=== PATIENT | male | born 1965 | race Caucasian/White ===

== ENCOUNTER 2018-06-25 11:06 | Outpatient (REF) | payer MEDICARE, SELFPAY ==
[2018-06-25 20:36] LABS: ALT 44 U/L (12-78); AST 58 U/L (15-37); Albumin 2.9 g/dL (3.4-5.0); Alkaline Phosphatase 186 U/L (46-116); Anion Gap 12.1 mmol/L (3-11); BUN 14 mg/dL (7-18); Bilirubin, Total 0.4 mg/dL (0.2-1.0); CO2 27.9 mmol/L (21.0-32.0); CREATININE 0.82 mg/dL (0.70-1.30); Calcium 9.9 mg/dL (8.5-10.1); Chloride 98 mmol/L (98-107); Cholesterol 148 mg/dL (50-200); Glucose 109 mg/dL (70-100); HDL Cholesterol 23 mg/dL (40-60); LDL CHOLESTEROL 85 mg/dL (<100); Magnesium 1.8 mg/dL (1.8-2.4); Potassium 5.3 mmol/L (3.5-5.1); Sodium 138 mmol/L (136-145); Total Protein 7.6 g/dL (6.4-8.2); Triglyceride 120 mg/dL (30-150)
== END 2018-06-25 11:26 ==
LOC: NCHCN 11:06
PROVIDERS: PCP Specialist/Technologist Athletic Trainer; Visit Provider Specialist/Technologist Athletic Trainer
DX: R10.9 Unspecified abdominal pain (principal); E78.2 Mixed hyperlipidemia; I10 Essential (primary) hypertension
CPT/HCPCS: 80053; 80061; 83721; 83735

== ENCOUNTER 2018-07-21 01:09 | Outpatient (CLI) | payer MEDICARE, SELFPAY ==
--- NOTE | 2018-07-21 08:41 | DI.US_ITS ---
SYMPTOM/DIAGNOSIS: ABD PAIN, R10.9 ABDOMEN ULTRASOUND: The liver appears mildly enlarged and question of hepatic steatosis is raised. There is a 2 cm. in diameter, heterogeneous solid mass in the left hepatic lobe anteriorly. There is a 10-11 cm. in diameter right lobe hepatic mass which is heterogenous in appearance. No other definite mass identified but liver was not optimally visualized. No biliary dilatation. Pancreas appears intact as visualized. Gallbladder is contracted and appears to contain a polyp measuring up to about 13 mm. in diameter. Gallbladder mass not entirely excluded on the basis of this examination. Spleen is unremarkable. Kidneys appear intact. Abdominal aorta not well visualized. IVC of normal diameter. CONCLUSION: 1. At least two heterogeneous solid liver masses appear to be present, differential is wide but most statistically likely would be atypical hemangioma versus metastatic disease. Correlation with multi phasic hepatic CT recommended. 2. Gallbladder polyp or mass appears to be present. Gallbladder is contracted. Further evaluation with MRCP should be considered.
== END 2018-07-21 01:29 ==
PROVIDERS: PCP Specialist/Technologist Athletic Trainer; Visit Provider Specialist/Technologist Athletic Trainer
DX: R10.9 Unspecified abdominal pain (principal); K76.89 Other specified diseases of liver; K82.0 Obstruction of gallbladder; R16.0 Hepatomegaly, not elsewhere classified; K82.4 Cholesterolosis of gallbladder
CPT/HCPCS: 76700

== ENCOUNTER 2018-07-31 12:15 | Outpatient (REF) | payer MEDICARE, SELFPAY ==
[2018-07-31 20:32] LABS: ALT 58 U/L (12-78); AST 48 U/L (15-37); Albumin 3.1 g/dL (3.4-5.0); Alkaline Phosphatase 357 U/L (46-116); BUN 15 mg/dL (7-18); Bilirubin, Total 0.5 mg/dL (0.2-1.0); CREATININE 0.82 mg/dL (0.70-1.30); Calcium 9.6 mg/dL (8.5-10.1); Chloride 97 mmol/L (98-107); Glucose 89 mg/dL (70-100); Potassium 5.2 mmol/L (3.5-5.1); Sodium 136 mmol/L (136-145)
[2018-07-31 20:45] LABS: HCT 38.2 % (40.0-50.0); HGB 11.8 g/dL (13.5-17.5); Mean Corp. HGB Concentration 30.9 g/dL (32.0-36.0); Mean Corpuscular Volume 87.4 fL (80-95); Mean Platelet Volume 10.4 fL (8.0-11.0); Platelet Count 439 x1000/uL (130-400); RBC 4.37 m/cumm (4.50-6.00); RBC Distribution Width 16.6 % (11.8-14.1); White Blood Cell Count 8.78 k/cumm (4.4-10.8)
== END 2018-07-31 12:35 ==
LOC: NCHCN 12:15
PROVIDERS: PCP Specialist/Technologist Athletic Trainer; Visit Provider Specialist/Technologist Athletic Trainer
DX: I10 Essential (primary) hypertension (principal); R93.5 Abnormal findings on diagnostic imaging of other abdominal regions, including retroperitoneum; E88.09 Other disorders of plasma-protein metabolism, not elsewhere classified; E87.5 Hyperkalemia
CPT/HCPCS: 80053; 85027

== ENCOUNTER 2018-08-01 01:03 | Outpatient (CLI) | payer MEDICARE, SELFPAY ==
--- NOTE | 2018-08-01 08:47 | DI.CT_ITS ---
SYMPTOMS/DIAGNOSIS: ABNL ABDOMINAL IMAGING, R93.5 CT OF THE ABDOMEN: Comparison is made with abdomen and pelvic CT from [facility] dated [id number] and recent abdominal ultrasound of [id number]. Images were performed before and after IV contrast during arterial, venous and delayed phases. Oral contrast was administered prior to the exam. As seen on ultrasound, there is a large irregular mass involving a majority of the right lobe of the liver extending from nearly the diaphragm through the inferior portion of the liver. There is a small amount of fluid subcapsular. There is some calcification within the lesion. A second smaller lesion was seen by ultrasound anteriorly in the liver which is not well defined by CT. There is a mass seen in the mesentery toward the right of the midline adjacent to and contiguous with the base of the cecum. There is calcification within this mass as well as fibrotic changes. The mass measures roughly 12 cm in length, which may include adjacent lymph nodes. There are numerous enlarged lymph nodes beneath the liver, measuring up to 5 cm in length. There are numerous small but abnormally enlarged mesenteric lymph nodes. There is no evidence of bowel obstruction however there is invasion of the base of the cecum. The mass may arise from the base of the cecum or may arise within the mesentery and could represent a carcinoid tumor. The adrenals, pancreas, spleen and kidneys are unremarkable. No metastases are seen at the lung bases. No bony metastases are seen. There is no ascites. The heart size appears normal. IMPRESSION: Large liver lesion, likely representing metastatic disease. There is a mass in the mesentery involving the base of the cecum. The mass may arise from the mesentery and could represent a carcinoid or could arise from the base of the cecum. The patient appears to be status post appendectomy based on the previous CT scan.
[2018-08-01] MEDS: Breeza Beverage 473 ML BTL PO (09:08)
[2018-08-01] MEDS: Omnipaque 350 MG/ML 50 ML BTL PO (09:09)
[2018-08-01] MEDS: Omnipaque 350 MG/ML 100 ML BTL IJ (10:04)
== END 2018-08-01 01:23 ==
PROVIDERS: PCP Specialist/Technologist Athletic Trainer; Visit Provider Specialist/Technologist Athletic Trainer
DX: D37.6 Neoplasm of uncertain behavior of liver, gallbladder and bile ducts (principal); D48.4 Neoplasm of uncertain behavior of peritoneum; R59.0 Localized enlarged lymph nodes; R93.5 Abnormal findings on diagnostic imaging of other abdominal regions, including retroperitoneum
CPT/HCPCS: 74170; J3490; Q9967

== ENCOUNTER 2018-08-04 15:01 | Outpatient (REF) | payer MEDICARE, SELFPAY ==
[2018-08-05 11:31] LABS: Campylobacter PCR SEE COMMENTS; Salmonella PCR SEE COMMENTS; Shiga Toxin PCR SEE COMMENTS; Shigella/Enteroinvasive Ecoli SEE COMMENTS
[2018-08-05 14:40] LABS: Helicobacter pylori Ag, Feces Negative (NEGAT)
== END 2018-08-04 15:21 ==
LOC: NCHCN 15:01
PROVIDERS: PCP Specialist/Technologist Athletic Trainer; Visit Provider Specialist/Technologist Athletic Trainer
DX: R19.7 Diarrhea, unspecified (principal); E87.5 Hyperkalemia; E88.09 Other disorders of plasma-protein metabolism, not elsewhere classified; R93.5 Abnormal findings on diagnostic imaging of other abdominal regions, including retroperitoneum
CPT/HCPCS: 87329; 87338; 87505; 82272; 83630; 87324

== ENCOUNTER 2018-09-05 07:58 | Outpatient (CLI) | payer MEDICARE, SELFPAY ==
[2018-09-05 08:40] LABS: Abs Immature Grans 0.14 k/cumm (0.0-0.09); Absolute Basophil Count 0.05 k/cumm (0.0-0.2); Absolute Eosinophil Count 0.45 k/cumm (0.0-0.7); Absolute Lymphocyte Count 1.07 k/cumm (1.2-3.4); Absolute Monocyte Count 0.93 k/cumm (0.11-0.7); Absolute Neutrophil Count 5.82 k/cumm (1.2-6.7); Basophils % 0.6; Eosinophils % 5.3; HGB 9.6 g/dL (13.5-17.5); Immature Grans % 1.7; Lymphocytes % 12.6; Mean Corpuscular Hemoglobin 28.2 pg (27.0-33.0); Mean Corpuscular Volume 91.2 fL (80-95); Mean Platelet Volume 10.2 fL (8.0-11.0); Neutrophils % 68.8; Platelet Count 394 x1000/uL (130-400); RBC Distribution Width 19.1 % (11.8-14.1); White Blood Cell Count 8.46 k/cumm (4.4-10.8)
[2018-09-05 09:02] LABS: ALT 207 U/L (12-78); AST 234 U/L (15-37); Albumin 2.2 g/dL (3.4-5.0); Anion Gap 10.1 mmol/L (3-11); BUN 11 mg/dL (7-18); Bilirubin, Total 9.3 mg/dL (0.2-1.0); CO2 27.9 mmol/L (21.0-32.0); Calcium 9.5 mg/dL (8.5-10.1); Chloride 98 mmol/L (98-107); Glucose 93 mg/dL (70-100); Potassium 4.6 mmol/L (3.5-5.1); Sodium 136 mmol/L (136-145); Total Protein 7.5 g/dL (6.4-8.2)
[2018-09-05 09:04] LABS: Alkaline Phosphatase 1144 U/L (46-116)
[2018-09-05 09:07] LABS: Diff Comment RBC Morph Reviewed
[2018-09-05 09:08] LABS: Anisocytosis 1+; Hypochromasia 1+; Polychromasia Present
[2018-09-10 08:40] LABS: DPYD Predicted Toxicity Risk Normal
== END 2018-09-05 08:18 ==
LOC: NCHCO 08:02 → LBO 08:15
PROVIDERS: PCP Specialist/Technologist Athletic Trainer; Visit Provider Internal Medicine Hematology & Oncology
DX: C18.9 Malignant neoplasm of colon, unspecified (principal); C78.7 Secondary malignant neoplasm of liver and intrahepatic bile duct
CPT/HCPCS: 36415; 80053; 81232; 82378; 85025

== ENCOUNTER 2018-09-23 01:47 | Outpatient (RCR) | payer MEDICARE, SELFPAY | END 2018-10-15 23:59 | disposition home or self-care (01) | LOC: INF 01:47 | PROVIDERS: PCP Specialist/Technologist Athletic Trainer; Visit Provider Internal Medicine Hematology & Oncology | DX: R69 Illness, unspecified (principal) ==